=== PATIENT | male | born 1950 | race American Indian/Alaskan Native ===

== ENCOUNTER 2017-09-28 06:31 | Day surgery (SDC) | payer MEDICARE ==
[2017-09-24 12:23] VITALS: BMI 25.7
[2017-09-28] MEDS ORDERED: cefTRIAXone IV 1 gm in Dextros 50 ML IVPB ONE (07:20)
[2017-09-28] MEDS ORDERED: Ciprofloxacin 400mg/200ml D5W 400 MG/200 ML BAG IVPB ONE (07:20)
[2017-09-28] MEDS ORDERED: Lidocaine 2% Jelly (Uro-Jet) ONE (07:21)
[2017-09-28] MEDS ORDERED: Gentamicin 80 mg in 0.9% NS 80 MG/100 ML BAG IVPB SCH (07:30)
[2017-09-28] MEDS ORDERED: Midazolam 2 MG/2 ML VIAL ONE (07:55)
[2017-09-28] MEDS ORDERED: Propofol 10 mg/ml Inj (20 ML) ONE (07:55)
[2017-09-28] MEDS ORDERED: Ciprofloxacin 400mg/200ml D5W 400 MG/200 ML BAG IVPB STA (08:21)
[2017-09-28] MEDS ORDERED: Oxycodone/Acetaminophen 5/325 mg Tab PO PRN (08:21)
[2017-09-28 09:26] VITALS: O2SAT 100
[2017-09-28 10:22] VITALS: BP 139/76; PULSE 61; RESP 18; TEMP 97.7
--- NOTE | 2017-09-28 20:28 | HP ---
REASON FOR ADMISSION: For elevation of serum PSA and voiding dysfunction. HISTORY OF PRESENT ILLNESS: A very pleasant gentleman who is here now for prostate ultrasound and biopsy. He reports his urinary symptoms he has nocturia, occasionally he has frequency, decreased force of stream. He has [id number] irritative and obstructive complaints. We have been following him with an elevated PSA and he is here now for a prostate ultrasound and biopsy. PAST MEDICAL AND SURGICAL HISTORY: As listed on the chart. No history of an NM or CVA. SOCIAL HISTORY: He is recently retired from [employer]. He is an extremely well-fit gentleman. MEDICATIONS: See chart. ALLERGIES: NO KNOWN DRUG ALLERGIES. REVIEW OF SYSTEMS: Listed above. No weight loss, chest pain, or shortness of breath. PHYSICAL EXAMINATION: GENERAL: A well-nourished male in no apparent distress. VITAL SIGNS: Within normal limits. Body habitus noted. LUNGS: Clear. HEART: S1, S2. ABDOMEN: Overall soft. Nontender. No flank mass appreciated. GENITOURINARY: Normal male phallus without discharge. No testicular mass. RECTAL: Small prostate actually, less than 20 gm. It is not an overly large prostate. FINAL DIAGNOSES: Voiding dysfunction, elevated prostate-specific antigen, nocturia, irritative and obstructive complaints. PLAN: The plan is as follows. We are going to plan for an ultrasound of the prostate, ultrasound-guided prostate biopsy, antibiotic prophylaxis. Risks and benefits were discussed with the patient at length. Wilner Weinberg MD
--- NOTE | 2017-10-01 11:11 | OP ---
PROCEDURE DATE: 09/28/2017 PREOPERATIVE DIAGNOSES: Elevated PSA, voiding dysfunction, nocturia, mild irritative and obstructive urinary complaint. POSTOPERATIVE DIAGNOSES: Elevated PSA, voiding dysfunction, nocturia, mild irritative and obstructive urinary complaint. PROCEDURE: Ultrasound of the prostate and ultrasound guided prostate biopsy. SURGEON: Wilner Weinberg MD. COMPLICATIONS: There were no complications. BLOOD LOSS: Less than 10 mL. SPECIMEN OBTAINED: Prostate cores. INDICATION: See history and physical. The patient is a very pleasant gentleman who is in generally good physical condition with minimal medical problems who elevated PSA. We discussed the options with the patient. He is here today for prostate ultrasound and biopsy. DESCRIPTION OF PROCEDURE: After obtaining informed consent, the patient was placed on the table. Routine monitors were placed. Time-out was called. We confirmed the patient positioning. He was in a decubitus position. Antibiotic prophylaxis used. We used a BK 7.5 MHz probe. Took pictures in transverse and longitudinal views. unfortunately, the printer was not printing. I took the pictures through my camera. Just one picture for documentation. But the volume measured about 20 to 30 mL (it is really a very small prostate). There are significant hypoechoic nodules noted. We continued now with the random biopsies and resection in quadrants of left base, left mid, left apex, right base, right mid, right apex, total of 12 biopsies and lateral and medial, . Post biopsy rectal exams are normal and the patient tolerated the procedure without complication. ADDENDUM: We will sent him home on antibiotics, and then further plans, we will follow once we check the pathology. Wilner Weinberg MD
== END 2017-09-28 10:23 | disposition home or self-care (01) ==
LOC: C.SDS 06:31
PROVIDERS: ATTEND Urology
DX: R97.20 Elevated prostate specific antigen [PSA] (principal)
CPT/HCPCS: 55700; 88305; J0696; J0744; J1580